=== PATIENT | female | born 2000 | race Caucasian/White ===

== ENCOUNTER 2024-06-28 04:12 | Emergency (ER) | payer OTHER, SELFPAY ==
[2024-06-28 04:13] VITALS: BP 105/94; PULSE 111; RESP 19; TEMP 37.1; O2SAT 97; BMI 41.8
--- NOTE | 2024-06-28 04:31 | CT_ITS ---
PROCEDURE: CT ABDOMEN AND PELVIS WITH IV CONTRAST REASON FOR EXAM: ABDOMINAL PAIN FOLLOWING PERFORMED 4 WEEKS AGO. TECHNIQUE: Contiguous axial scans of 2.5 mm slice thicknesses. Sagittal and coronal reconstruction images were obtained. One or more dose reduction techniques were used (e.g., automated exposure control, adjustment of mA and/or kv according to patient size, use of iterative reconstruction technique). IV CONTRAST: Isovue 370, 98 mL. COMPARISON: None. FINDINGS: Lung bases: Clear Liver: Hepatomegaly. Mild periportal edema. Gallbladder: Multiple gallstones layer dependently. Spleen: Mild splenomegaly. Pancreas: Unremarkable. Adrenals: Unremarkable. Kidneys: Unremarkable. Bladder: Unremarkable. Reproductive Organs: Unremarkable. Bowel: Unremarkable. Appendix: Normal. Lymph nodes: No suspicious lymph node enlargement. Vasculature: Major vascular structures are unremarkable. Anterior abdominal wall: Thickening of the lower anterior abdominal wall in the midline most likely related to the patient's recent . Peritoneum / Retroperitoneum: No ascites. No free air. Bones: Unremarkable. CT/Abdomen/Pelvis W IV Cont ONLY IMPRESSION: 1. HEPATOSPLENOMEGALY. 2. MILD PERIPORTAL EDEMA. THIS CAN BE SEEN IN HEPATIC INFLAMMATION. 3. CHOLELITHIASIS. 4. SKIN THICKENING RELATED TO RECENT . Reading Location: [facility]
[2024-06-28] MEDS: 0.9% Normal Saline (1000mL) 1,000 ML 999 ML IV (04:37)
[2024-06-28 04:48] LABS: Absolute Lymphocyte Count 3.37 X10^3/uL (0.83-4.51); Absolute Neutrophil Count 3.6 X10^3/uL (2.0-7.7); Basophil# 0.07 X10^3/uL; Basophil% 0.9 % (0-1); Eosinophil# 0.18 X10^3/uL; Eosinophils% 2.3 % (0-5); Hematocrit 36.6 % (37-47); Lymphocyte # 3.37 X10^3/ul (0.83-4.51); Lymphocyte % 42.4 % (19-41); Mean Corp Hgb Conc 32.8 g/dL (32-36); Mean Corpuscular Hgb 29.7 pg (27.0-32.0); Mean Corpuscular Volume 90.6 fL (81-99); Mean Platelet Vol. 8.6 fl (6.2-12.0); Monocyte# 0.72 X10^3/uL; Monocyte% 9.1 % (0-10); NRBC Flagged by Analyzer 0 % (0-5); Neutrophil # 3.57 X10^3/uL (2.7-7.7); Neutrophil % 44.8 % (47-70); Platelet Count 218 K/mm3 (150-450); RBC Distribution Width CV 13.5 % (11.6-14.6); RBC Distribution Width SD 44.2 fl (35.1-43.9); Red Blood Count 4.04 M/mm3 (4.2-5.4)
[2024-06-28 05:12] LABS: Color, Urine Yellow (Yellow); Glucose, Dipstick Normal (Normal); Ketone-Dipstick 5 mg/dl (Negative); Leukocyte Esterase-Dipstick 500 /ul (Negative); Nitrite-Dipstick Positive (Negative); Occult Blood-Urine 10 /ul (Negative); Protein-Dipstick 30 mg/dl (Negative); Specific Gravity, Urine 1.015 (1.002-1.030); Urine Clarity Cloudy (Clear); Urine Urobilinogen 4 mg/dl (Normal); Urine pH 6.5 (5.0 - 8.0)
[2024-06-28 05:13] LABS: AST(SGOT) 79 U/L (15-37); Alanine Aminotransfer ALT/SGPT 99 U/L (13-56); Albumin, Serum 3.2 g/dL (3.2-5.0); Alkaline Phosphatase 111 U/L (45-117); Anion Gap 7 (5-15); BUN 10 mg/dL (7-18); BUN/Creat Ratio 14.6 RATIO (10-20); Bilirubin, Direct 0.33 mg/dL (0.00-0.30); Calcium,Total 8.4 mg/dL (8.5-10.1); Chloride 107 mmol/L (98-107); Creatinine, Serum 0.69 mg/dL (0.55-1.02); EST Glomerular Filtration Rate 111 mL/min (>60); Est Glom Filt Rate - Afr Amer 134 mL/min (>60); Estimated Creatinine Clearance 153.02 ml/min; Globulin 3.8 g/dL (2.2-4.2); Glucose 124 mg/dL (74-106); Lipase 64 U/L (13-75); Potassium 3.5 mmol/L (3.5-5.1); Sodium Level 138 mmol/L (136-145)
[2024-06-28 05:38] LABS: Urine Bilirubin Dipstick 1 mg/dL (Negative)
[2024-06-28 05:39] LABS: Bacteria 3+ /hpf (None Seen); Mucous, Urine 2+ /hpf (<or=2+); Red Blood Cells-Urine 5-10 SEEN /hpf (0-5); Squamous Epithelial Cells - UA 10-25 SEEN /hpf (5-10); Transitional Epithelial - Ur 0-5 SEEN /hpf (0-5); White Blood Cells >100 SEEN /hpf (0-5)
--- NOTE | 2024-06-28 05:45 | NURSING ---
Satya Neumann RN reviewed pump and pumping instructions with pt at this time. Pt verbalized understanding.
--- NOTE | 2024-06-28 05:55 | US_ITS ---
PROCEDURE: Ultrasound of the right upper quadrant. REASON FOR EXAM: Right upper quadrant pain. COMPARISON: None FINDINGS: Liver: Hepatomegaly. The liver measures 22.1 cm. Gallbladder: Multiple echogenic gallstones are identified. The gallbladder wall measures 2 mm. Common bile duct: 5 mm . Pancreas: Visualized portions are sonographically unremarkable. Visualized portions of the right kidney are unremarkable. No right upper quadrant ascites. US/Gallbladder IMPRESSION: CHOLELITHIASIS. Hepatomegaly. Reading Location: [place] [id number]
[2024-06-28 06:13] VITALS: BP 116/80; PULSE 95; RESP 18; O2SAT 98
--- NOTE | 2024-06-28 06:59 | EX.ED.DYSGE1 ---
HPI History of Present Illness Chief Complaint: Abd Pain Informant: patient and spouse/S.O. Narrative Narrative: Patient is a 23-year-old female with no significant past medical history. She states that she had a 4 weeks ago. Since that time she has had 3 different bouts of right upper quadrant and midepigastric abdominal pain that she states will come on suddenly and is sharp in nature. She states it would typically last for a few minutes to a few hours and then resolve. She reports that she went to bed normally last night and then awoke an hour or 2 prior to arrival with sharp upper abdominal pain and nausea. She states as this has been reoccurring she decided to come in for evaluation. Upon arrival she states that the pain is not gone but it is much improved. She denies fevers or chills or dysuria. PFSH PFSH Medical History no medical history no medical history Home Medications ?Medication ?Instructions ?Recorded ?Last Taken ?Type amoxicillin 875 mg tablet 875 mg PO BID 10 days #20 tabs 06/28/24 Unknown Rx Allergy/AdvReac Type Severity Reaction Status Date / Time No Known Allergies Allergy Verified 06/28/24 04:13 Surgical History (Updated 06/28/24 @ 04:14 by Cinthia Gonsales) H/O surgical removal of keloid Hx of section Social History Smoking Status: Never smoker ROS ROS ED Constitutional Constitutional ED: Denies chills or fever(s) Eyes Eyes: Denies change in vision ENT ENT ED: Denies sore throat Cardiovascular Cardiovascular: Denies chest pain Respiratory/Chest Respiratory/Chest: Denies cough or dyspnea Gastrointestinal Gastrointestinal: Reports abdominal pain and nausea; Denies constipation, diarrhea or vomiting Genitourinary Genitourinary ED: Denies dysuria Musculoskeletal Musculoskeletal: Denies back pain Integumentary Denies rash Neurologic Neurologic: Denies headache(s) Hematologic/Lymphatic Hematologic/Lymphatic: Denies easy bleeding or easy bruising EXAM Physical Exam Const Vital Signs: 06/28/24 04:13 06/28/24 06:13 Temperature 98.7 F Temperature Source Oral Pulse Rate 111 H 95 Respiratory Rate 19 H 18 Blood Pressure 105/94 H 116/80 Blood Pressure Mean 97 92 Pulse Ox 97 98 Oxygen Delivery Method Room Air Room Air Positive well nourished, well developed and obese General Appearance ED: well developed Nutritional Appearance: obese HEENT HEENT Narrative: There is faint hard palate petechiae noted in the posterior pharynx. No tonsillar hypertrophy or exudates no trismus change in voice or difficulty with secretions Eyes PERRL and EOMs intact bilaterally General Eye ED: Negative for scleral icterus Neck supple Neck Narrative: No nuchal rigidity or meningeal signs Resp normal respiratory effort and clear to auscultation bilaterally Cardio regular rate and regular rhythm Rate: other Other Details: Heart is regular rate and rhythm without murmurs rubs or gallops Radial and carotid pulses are equal and symmetric GI normal to inspection, nondistended, normoactive bowel sounds, non-tender, non-distended and no masses GI Narrative: Abdomen is soft nontender and nondistended with normal active bowel sounds. No voluntary guarding or rigidity or pulsatile mass. Negative Brown sign. Auscultation: normoactive bowel sounds Palpation: soft Back/Spine no CVA tenderness Extremity normal to inspection Neuro oriented x3, CN's II-XII intact bilaterally and no sensory deficits noted Sensorium / Orientation: alert Motor Exam: strength 5/5 throughout Psych mental status grossly normal Skin no rashes or lesions noted Skin Narrative: Surgical incision from recent is clean dry and intact without secondary findings to suggest infection MDM MDM MDM Narrative Medical decision making narrative: Patient arrived to the ER with stable vitals and had spontaneous resolution of her pain. With intermittent pain in the midepigastric and right upper quadrant region there is concern for biliary colic versus acute cholecystitis versus pancreatitis. As she does have mild soft tissue discoloration in the posterior pharynx this could be atypical strep pharyngitis. Basic blood work was obtained which shows no leukocytosis or left shift. Strep swab is positive which correlates with her physical exam but based on the intermittent sharp nature of the pain I do not feel this is the main cause for her symptoms. A CT scan was obtained to check for postoperative complication and shows periportal edema with gallstones. As the CT could misinterpret those changes for potential acute cholecystitis I do feel that an ultrasound is more appropriate and therefore that was ordered. The urine sample shows changes concerning for infection but her pain is upper not lower she does not have dysuria and there is large amounts of contamination and therefore I will send the urine for culture but do not feel there is need for prophylactic urinary antibiotics At this time the patient's ultrasound report is still pending so she will be signed out to the day physician Dr. Davidson. She does state that she continues to be pain-free in the ER History & Record Review Discussion w/independent historian: Patient and Significant other Lab Data Attestation: I reviewed the patient's lab results. Labs: Laboratory Results - last 24 hr 06/28/24 06/28/24 04:19 04:36 WBC 8.0 RBC 4.04 L Hgb 12.0 Hct 36.6 L MCV 90.6 MCH 29.7 MCHC 32.8 RDW Std Deviation 44.2 H RDW Coeff of Susan 13.5 Plt Count 218 MPV 8.6 Immature Gran % (Auto) 0.500 Neut % (Auto) 44.8 L Lymph % (Auto) 42.4 H Kern % (Auto) 9.1 Eos % (Auto) 2.3 Baso % (Auto) 0.9 Absolute Neuts (auto) 3.6 Absolute Lymphs (auto) 3.37 Nucleated RBC % 0 Sodium 138 Potassium 3.5 Chloride 107 Carbon Dioxide 24.0 Anion Gap 7 BUN 10 Creatinine 0.69 Estim Creat Clear Calc 153.02 Est GFR (MDRD) Af Amer 134 Est GFR (MDRD) Non-Af 111 BUN/Creatinine Ratio 14.6 Glucose 124 H Calcium 8.4 L Total Bilirubin 0.70 Direct Bilirubin 0.33 H AST 79 H ALT 99 H Alkaline Phosphatase 111 Total Protein 7.0 Albumin 3.2 Globulin 3.8 Lipase 64 Urine Color Yellow Urine Clarity Cloudy Urine pH 6.5 Ur Specific [place] 1.015 Urine Protein 30 H Urine Glucose (UA) Normal Urine Ketones 5 H Urine Occult Blood 10 H Urine Nitrite Positive H Urine Bilirubin 1 H Urine Urobilinogen 4 H Ur Leukocyte Esterase 500 H Urine RBC 5-10 SEEN Urine WBC >100 SEEN Ur Squamous Epith Cells 10-25 SEEN Ur Transition Epith Cell 0-5 SEEN Urine Bacteria 3+ Urine Mucus 2+ Radiography Diagnostic Testing: Clinical Impression(s) from Imaging Studies Abdomen/Pelvis CT 06/28/24 04:31 IMPRESSION: 1. HEPATOSPLENOMEGALY. 2. MILD PERIPORTAL EDEMA. THIS CAN BE SEEN IN HEPATIC INFLAMMATION. 3. CHOLELITHIASIS. 4. SKIN THICKENING RELATED TO RECENT . Reading Location: [facility] Discharge Plan Triage Chief Complaint: Abd Pain ED Provider: Abdulkadir Colon Dx/Rx/DC Orders Clinical Impression: Cholelithiasis, Pharyngitis, streptococcal Instructions: ED Gallstones with Biliary Colic, ED Pharyngitis, Strep (Confirmed) Prescriptions: New amoxicillin 875 mg tablet 875 mg PO BID 10 Days Qty: 20 0RF Primary Care Provider: Phillip Vences Referrals: Phillip Vences DO [Primary Care Provider] - Print Language: French
[2024-06-28 08:00] VITALS: BP 124/76; PULSE 97; RESP 16; O2SAT 99
[2024-06-28 09:21] VITALS: BP 134/76; PULSE 92; RESP 16; O2SAT 98
[2024-06-28 10:09] VITALS: BP 112/72; PULSE 99; RESP 18; TEMP 36.7; O2SAT 99
== END 2024-06-28 10:10 | disposition home or self-care (01) ==
PROVIDERS: Emergency Provider Emergency Medicine; PCP Family Medicine; Visit Provider Emergency Medicine
DX: K80.20 Calculus of gallbladder without cholecystitis without obstruction (principal); J02.0 Streptococcal pharyngitis
CPT/HCPCS: 74177; 76705; 80048; 80076; 81001; 83690; 85025; 87086; 87088; 87651; 96360; 96361; 99285; Q9967; A4216